=== PATIENT | male | born 1945 | race Caucasian/White ===

== ENCOUNTER 2024-10-10 20:15 | Outpatient (CLI) | payer MEDICARE, SELFPAY | END 2024-10-10 20:16 | disposition home or self-care (01) | LOC: SLEEP 20:23 | PROVIDERS: PCP Family Medicine; Visit Provider Internal Medicine | DX: G47.33 Obstructive sleep apnea (adult) (pediatric) (principal); R09.02 Hypoxemia | CPT/HCPCS: 95811 ==